=== PATIENT | female | born 1975 | race Caucasian/White ===

== ENCOUNTER 2017-05-08 14:58 | Emergency (ER) | payer OTHER ==
[~2017-05-08] VITALS: Ht 157.5 cm; Wt 65.0 kg
[2017-05-08 15:01] VITALS: Ht 157.5 cm; Wt 65.0 kg
[2017-05-08] MEDS ORDERED: SOD CHLORIDE 0.9% 1,000 ML IV STA (16:32)
[2017-05-08 17:08] LABS: BASOPHILS % 0.5 % (0.0-2.0); EOSINOPHILS # 0.3 10^3/ul (0.0-0.5); EOSINOPHILS % 2.9 % (0.0-7.0); HEMATOCRIT 35.1 % (37.0-47.0); HEMOGLOBIN 11.6 g/dl (12.0-16.0); LYMPHOCYTES # 3.5 10^3/ul (0.8-2.9); LYMPHOCYTES % 41.1 % (15.0-51.0); MEAN CORPUSCULAR HEMOGLOBIN 29.4 pg (29.0-33.0); MEAN CORPUSCULAR VOLUME 88.9 fl (82.0-101.0); MEAN PLATELET VOLUME 11.4 fl (7.4-10.4); MONOCYTE # 0.5 10^3/ul (0.3-0.9); MONOCYTES % 5.3 % (0.0-11.0); NEUTROPHIL # 4.3 10^3/ul (1.6-7.5); PLATELET COUNT 274 10^3/UL (140-415); RED BLOOD COUNT 3.95 10^6/ul (4.20-5.40); RED CELL DISTRIBUTION WIDTH 13.5 % (11.5-14.5); WHITE BLOOD COUNT 8.6 10^3/ul (4.8-10.8)
[2017-05-08 17:15] LABS: ADD UMIC YES; UR ASCORBIC ACID NEGATIVE (NEGATIVE); UR BILIRUBIN (Dip) NEGATIVE (NEGATIVE); UR BLOOD (Dip) 1+ mg/dL (NEGATIVE); UR CLARITY CLEAR (CLEAR); UR COLOR COLORLESS (YELLOW); UR GLUCOSE (Dip) NEGATIVE (NEGATIVE); UR KETONES (Dip) NEGATIVE (NEGATIVE); UR LEUKOCYTE ESTERASE (Dip) NEGATIVE Leu/ul (NEGATIVE); UR NITRITE (Dip) NEGATIVE (NEGATIVE); UR RBC 1 /HPF (0-5); UR SPECIFIC GRAVITY (Dip) 1.006 (1.003-1.030); UR TOTAL PROTEIN (Dip) NEGATIVE (NEGATIVE); UR UROBILINOGEN (Dip) NEGATIVE (NEGATIVE)
[2017-05-08 17:32] LABS: INR 0.93; PROTIME 12.5 Sec (12.2-14.2)
[2017-05-08 17:33] LABS: PARTIAL THROMBOPLASTIN TIME 25.4 Sec (25.0-35.0)
[2017-05-08 17:40] LABS: ALANINE AMINOTRANSFERASE 27 IU/L (13-69); ALBUMIN 4.2 g/dl (3.3-4.9); ALBUMIN/GLOBULIN RATIO 1.35; ALKALINE PHOSPHATASE 55 IU/L (42-121); AMYLASE 80 U/L (11-123); ANION GAP 19 (8-16); ASPARTATE AMINO TRANSFERASE 20 IU/L (15-46); BLOOD UREA NITROGEN 13 mg/dl (7-20); CALCIUM 9.2 mg/dl (8.4-10.2); CARBON DIOXIDE 25 mmol/L (21-31); CHLORIDE 101 mmol/L (97-110); GLUCOSE 99 mg/dl (70-220); POTASSIUM 3.8 mmol/L (3.5-5.1); SODIUM 141 mmol/L (135-144); TOTAL PROTEIN 7.3 g/dl (6.1-8.1)
[2017-05-08 17:50] LABS: CREATININE 0.47 mg/dl (0.44-1.00)
[2017-05-08 17:52] LABS: TROPONIN-I < 0.012 ng/ml (0.00-0.12)
[2017-05-08] MEDS ORDERED: IOHEXOL 300MG/ML 150 ML BTL ONE (18:12)
[2017-05-08] MEDS ORDERED: SOD CHLORIDE 0.9% 100 ML ONE (18:12)
--- NOTE | 2017-05-08 18:57 | ERD ---
ER Documentation Chief Complaint Date/Time DATE: 05/08/17 TIME: 18:54 Chief Complaint Pt with AP and back pain X 5 days. HPI This is a 42-year-old female with no past medical history that presents to the emergency department complaining of diffuse abdominal cramping intermittent for the past 7 days. The patient indicates that the cramping began in the epigastric region and then began to move to the left lower quadrant and back. She states she has had no fevers or shaking or chills. She denies any recent remote trauma. Her past surgical history includes appendectomy. She denies any frequency urgency or dysuria. She has no chest pain or pressure that radiates the neck arm back or jaw no shortness of breath at rest or exertion. She denies any alleviating or exacerbating factors to the pain. She denies any hemoptysis hematemesis or melanotic stools. She denies any recent travel. She did not take any analgesic medication for the pain which is 4 out of 10 in intensity. ROS All systems reviewed and are negative except as per history of present illness. Medications Home Meds Active Scripts Naproxen* (Naprosyn*) 500 Mg Tablet, 500 MG PO BID Y for PAIN AND/OR INFLAMMATION, #20 TAB Prov:LOGAN DAVIES 05/08/17 PMhx/Soc Medical and Surgical Hx: pt denies Medical Hx, pt denies Surgical Hx Hx Alcohol Use: No Hx Substance Use: No Hx Tobacco Use: No Physical Exam Vitals Vital Signs Date Time Temp Pulse Resp B/P Pulse Ox O2 Delivery O2 Flow Rate FiO2 05/08/17 21:29 68 20 129/72 99 Room Air 05/08/17 15:01 98.5 78 18 133/83 98 Physical Exam Constitutional:Well-developed. Well-nourished. HEENT:Normocephalic. Atraumatic.Pupils were equal round reactive to light. Moist mucous membranes.No tonsillar exudates. Neck: No nuchal rigidity. No lymphadenopathy. No posterior cervical spine tenderness or step-offs. Respiratory: Not using accessory muscles of respiration.Lungs were clear to auscultation bilaterally. No rhonchi. No rales. No wheezing. Cardiovascular: Regular rate regular rhythm.No murmurs. No rubs were appreciated.S1, S2 normal. Distal pulses are palpable 2+ bilaterally. GI: Abdomen was soft. Tenderness in the left lower quadrant. Non Distended. No pulsatile abdominal masses or bruits. No rebound. No guarding. Bowel sounds were present and normal. Muscle skeletal: Full range of motion of both the upper and lower extremities bilaterally.Normal muscle tone.No assymetrical calf tenderness or swelling. Skin: No petechia, no purpura. No lesions on the palms or the soles of the feet. No maculopapular rash. NEURO: Patient was alert, awake, orientated x3.No facial droop. Gait observed and normal with no ataxia.Speech had regular rate and rhythm. No focal neurological deficits. Result Diagram: 05/08/17 1644 05/08/17 1644 Results 24 hrs Laboratory Tests Test 05/08/17 16:16 05/08/17 16:44 Urine Color COLORLESS Urine Clarity CLEAR Urine pH 5.0 Urine Specific [place] 1.006 Urine Ketones NEGATIVEmg/dL Urine Nitrite NEGATIVEmg/dL Urine Bilirubin NEGATIVEmg/dL Urine Urobilinogen NEGATIVEmg/dL Urine Leukocyte Esterase NEGATIVELeu/ul Urine Microscopic RBC 1/HPF Urine Microscopic WBC 0/HPF Urine Hemoglobin 1+mg/dL Urine Glucose NEGATIVEmg/dL Urine Total Protein NEGATIVEmg/dl White Blood Count 8.610^3/ul Red Blood Count 3.9510^6/ul Hemoglobin 11.6g/dl Hematocrit 35.1% Mean Corpuscular Volume 88.9fl Mean Corpuscular Hemoglobin 29.4pg Mean Corpuscular Hemoglobin Concent 33.0g/dl Red Cell Distribution Width 13.5% Platelet Count 91862^3/UL Mean Platelet Volume 11.4fl Neutrophils % 50.0% Lymphocytes % 41.1% Monocytes % 5.3% Eosinophils % 2.9% Basophils % 0.5% Nucleated Red Blood Cells % 0.0/100WBC Neutrophils # 4.310^3/ul Lymphocytes # 3.510^3/ul Monocytes # 0.510^3/ul Eosinophils # 0.310^3/ul Basophils # 0.010^3/ul Nucleated Red Blood Cells # 0.010^3/ul Prothrombin Time 12.5Sec Prothrombin Time Ratio 1.0 INR International Normalized Ratio 0.93 Activated Partial Thromboplast Time 25.4Sec Sodium Level 141mmol/L Potassium Level 3.8mmol/L Chloride Level 101mmol/L Carbon Dioxide Level 25mmol/L Anion Gap 19 Blood Urea Nitrogen 13mg/dl Creatinine 0.47mg/dl Glucose Level 99mg/dl Calcium Level 9.2mg/dl Total Bilirubin 0.0mg/dl Direct Bilirubin 0.00mg/dl Indirect Bilirubin 0.0mg/dl Aspartate Amino Transf (AST/SGOT) 20IU/L Alanine Aminotransferase (ALT/SGPT) 27IU/L Alkaline Phosphatase 55IU/L Troponin I < 0.012ng/ml Total Protein 7.3g/dl Albumin 4.2g/dl Globulin 3.10g/dl Albumin/Globulin Ratio 1.35 Amylase Level 80U/L Lipase 84U/L Current Medications Medications (Trade) Dose Ordered Sig/Alka Route PRN Reason Start Time Stop Time Status Last Admin Dose Admin Sodium Chloride (NS) 1,000 ml @ 1,000 mls/hr Q1H STAT IV 05/08/17 16:32 05/08/17 17:31 DC 05/08/17 16:56 IV Flush 10 ml 10 ml STK-MED ONCE .ROUTE 05/08/17 18:12 05/08/17 18:13 DC 05/08/17 18:12 Sodium Chloride (NS) 100 ml @ ud STK-MED ONCE .ROUTE 05/08/17 18:12 05/08/17 18:13 DC 05/08/17 18:12 Iohexol (Omnipaque 300mg/ ml) 150 ml STK-MED ONCE .ROUTE 05/08/17 18:12 05/08/17 18:13 DC 05/08/17 18:12 Procedures/MDM This patient presented to the emergency department with abdominal pain and was seen and evaluated by myself. My differential diagnosis included but was not limited to abdominal aortic aneurysm, appendicitis, pancreatitis, perforated peptic ulcer, perforated viscus, Boerhaaves syndrome or visceral pain such as diverticulitis, DKA, esophagitis, hepatitis or bowel obstruction. The patient was placed on a cardiac exercise specialist, continuous pulse oximetry, and IV access was established by nursing staff. The patient was given a liter bolus of 0.9 normal saline. She was refusing analgesic medication. 12 Lead EKG tracing ordered and reviewed by myself showed: Normal sinus rhythm of 60 bpm and no arrhythmia. OK interval normal. QRS duration normal. No ST segment elevation No ST segment depression. No changes consistent with acute ischemia. I did obtain a CT scan of the abdomen with IV contrast reviewed by both myself the radiologist which indicated the patient had diverticulosis. The patient states she felt comfortable being discharged home. Again she refused all analgesic medication. She will follow-up with her primary care physician. She was given a prescription of Naprosyn. The patient was discharged home in fair condition. They were instructed to return to the emergency department at any time if there was any worsening of their condition. The patient stated they would follow up with their PCP in the next 24-48 hours to initiate a suitable medication regimen under the care of their PCP as well as to allow their PCP to monitor any drug reactions. The patient was discharged home with prescriptions after they gave informed consent to the new medication. They were also fully informed by myself on the adverse effects and adverse drug interactions in order to provide adequate safeguards to prevent possible adverse reactions to medications. Departure Diagnosis: Primary Impression: Diverticulosis Diverticulosis site: diverticulosis of large intestine Diverticulosis bleeding: diverticulosis without bleeding Qualified Code: K57.30 - Diverticulosis of large intestine without hemorrhage Condition: Fair LOGAN DAVIES May 08, 2017 18:57
--- NOTE | 2017-05-08 20:39 | RADRPT ---
PROCEDURE: CT abdomen and pelvis with contrast. CLINICAL INDICATION: Left lower quadrant abdominal pain. TECHNIQUE: CT scan of the abdomen and pelvis with contrast was performed after the uneventful intravenous admin istration of 90 cc of Omnipaque-300. Coronal and sagittal reformatted images were obtained from the axial source images. The total exam CTDI equals 8.86 mGy and the total exam DLP equals 459.74 mGy-cm . One or more of the following dose reduction techniques were used: - Automated exposure control. - Adjustment of the mA and/or kV according to patient size. - Use of iterative reconstruction technique. COMPARISON: None available. FINDINGS: Visualized lower thorax: There is subsegmental atelectasis versus scarring in the left lower lobe. There is a 4 mm pleural-b ased ground-glass nodule in the posterior right lower lobe. The visualized lung bases are otherwise clear. The visualized heart is unremarkable. Hepatobiliary system and spleen: The liver is normal in size and density with no focal hepatic lesion identified. There is no intra o r extrahepatic biliary ductal dilatation. The gallbladder is unremarkable. The spleen is unremarkabl e. The pancreas is unremarkable. Adrenal glands and genitourinary system: The adrenal glands are unremarkable. There are no renal masses or hydronephrosis. The urinary bladde r is unremarkable. There is a simple appearing 2.6 cm left ovarian cyst. The uterus and adnexa are otherwise unremarkable. Gastrointestinal system: There is a 2.1 cm diverticulum arising near the junction of the second and third portions of the duo denum. The stomach and small bowel are otherwise unremarkable. There is scattered diverticular dise ase throughout the colon without evidence of diverticulitis. The appendix is not identified, but the re are no secondary findings of appendicitis. Peritoneum, vascular system, lymphatics: There is no free intraperitoneal air or free fluid. There is no mesenteric or retroperitoneal adenop athy. There are atherosclerotic changes of the aorta, which is nonaneurysmal. Musculoskeletal system: <There are no concerning osseous lesions. IMPRESSION: 1. No acute abnormality or findings to suggest a source of the patient's symptoms. 2. Pleural-based 4 mm ground-glass nodule in the posterior right lower lobe. Per the Fleischner So ciety, no routine follow-up is recommended. 3. Scattered diverticular disease throughout the colon. Diverticulum measuring 2.1 cm arising near the junction of the second and third portions of the duodenum. No evidence of diverticulitis. 4. Simple appearing 2.6 cm left ovarian cyst. RPTAT: HLBP .Andres Ojeda MD, MD Date Time Electronically viewed and signed by .Andres Ojeda MD, MD on 05/08/2017 20:39 .P/
[2017-05-08] MEDS ORDERED: NAPR-260 PO (21:20)
[2017-05-08 21:29] VITALS: BP 129/72; PULSE 68; RESP 20
== END 2017-05-08 21:29 | disposition home or self-care (01) ==
LOC: FTE 14:58
DX: K57.30 Diverticulosis of large intestine without perforation or abscess without bleeding (principal)
CPT/HCPCS: 74177; 80053; 81001; 82150; 83690; 84484; 85025; 85610; 85730; 87086; 93005; J7030; Q9967; Z7502; Z7610